=== PATIENT | male | born 1965 ===

== ENCOUNTER 2017-12-16 16:07 | Emergency (ER) | payer MEDICAID ==
[2017-12-16 16:08] VITALS: BMI 35.2
[2017-12-16 16:55] VITALS: TEMP 98
--- NOTE | 2017-12-16 17:19 | ED PDOC ---
HPI: General Adult Time Seen by Provider: 12/16/17 16:59 Chief Complaint (Nursing): Medical Clearance Chief Complaint (Provider): High Blood Pressure History Per: Patient Additional Complaint(s): 52 year old male presents to the ED for an evaluation of high blood pressure. Patient states he checked his blood pressure this morning with the machine on the wrist and it read 185/114. He is compliant with his blood pressure medication. He denies chest pain, difficulty breathing, shortness of breath, dizziness, headache or vision changes. PMD: [facility] Past Medical History Reviewed: Historical Data, Nursing Documentation, Vital Signs Vital Signs: Last Vital Signs Temp 98 F 12/16/17 16:52 Pulse 62 12/16/17 16:52 Resp 20 12/16/17 16:52 BP 153/78 H 12/16/17 16:52 Pulse Ox 98 12/16/17 19:16 - Medical History PMH: Atrial Fibrillation, Cardia Arrhythmia (afib), CVA (with L side weakness), Diabetes, HTN, Hypercholesterolemia, TIA - Surgical History Surgical History: Coronary Stent - Family History Family History: States: No Known Family Hx - Living Arrangements Living Arrangements: With Family - Social History Current smoker - smoking cessation education provided: No Alcohol: None Drugs: Denies - Home Medications Home Medications: Ambulatory Orders Medication Instructions Recorded Lisinopril 40 mg PO HS 02/19/14 Metformin Hydrochloride [Metformin] 500 mg PO BID 02/19/14 Metoprolol Tartrate 125 mg PO BID 02/19/14 Aspirin [Ecotrin] 81 mg PO DAILY 02/25/15 Fluticasone Propionate [Flonase] 2 spray DEA DAILY PRN 02/25/15 Vitamin B Complex [Super B100] 1 cap PO DAILY 02/25/15 Atorvastatin [Lipitor] 80 mg PO DAILY #0 tab 03/05/15 Dabigatran [Pradaxa] 150 mg PO BID #0 cap 03/05/15 Hydrochlorothiazide [HCTZ] 25 mg PO DAILY #0 tablet 03/05/15 Potassium Chloride [K-Dur 20 mEq 20 meq PO DAILY #0 tab 03/05/15 ER Tab] amLODIPine [Norvasc] 10 mg PO DAILY #0 tab 03/05/15 hydrALAZINE [Apresoline] 10 mg PO TID #0 tab 03/05/15 - Allergies Allergies/Adverse Reactions: Allergies Allergy/AdvReac Type Severity Reaction Status Date / Time No Known Allergies Allergy Verified 12/16/17 16:52 Review of Systems ROS Statement: Except As Marked, All Systems Reviewed And Found Negative Constitutional: Negative for: Fever, Chills, Weakness Cardiovascular: Negative for: Chest Pain, Palpitations, Edema, Light Headedness Respiratory: Negative for: Cough, Shortness of Breath Gastrointestinal: Negative for: Nausea, Vomiting Neurological: Negative for: Headache, Dizziness Physical Exam - Reviewed Nursing Documentation Reviewed: Yes Vital Signs Reviewed: Yes - Physical Exam Appears: Positive for: Well, Non-toxic, No Acute Distress Head Exam: Positive for: ATRAUMATIC, NORMAL INSPECTION, NORMOCEPHALIC Skin: Positive for: Normal Color. Negative for: Rash Eye Exam: Positive for: Normal appearance Cardiovascular/Chest: Positive for: Regular Rate, Rhythm. Negative for: Murmur Respiratory: Positive for: Normal Breath Sounds. Negative for: Decreased Breath Sounds, Wheezing, Respiratory Distress Gastrointestinal/Abdominal: Positive for: Normal Exam, Bowel Sounds, Soft. Negative for: Tenderness Neurologic/Psych: Positive for: Alert, Oriented (x3) - Laboratory Results Result Diagrams: 12/16/17 17:59 12/16/17 17:59 - ECG Interpretation Of ECG: A fib, 52 bpm, slow ventricular response, reviewed by PA and ED attending O2 Sat by Pulse Oximetry: 98 (RA) Pulse Ox Interpretation: Normal Medical Decision Making Medical Decision Making: Time: 1658 Initial Impression: 52 year old male with known history of HTN Initial Plan: --CMP --Troponin I --CBC --EKG BP upon arrival to ED 153/78 6:28 pm: K is low at 3.2, Kdur 40 PO given 7:00 pm Repeat BP 141/85 8:15 pm: BP - 134/83 Patient aware of all diagnostic testing results, all questions answered. Patient was advised to continue with current medications and was advised to follow-up with clinic in 2-3 days. Scribe Attestation: Documented by Joanne Adorno, acting as a scribe for Emily Wood PA-C Provider Scribe Attestation: All medical record entries made by the Scribe were at my direction and personally dictated by me. I have reviewed the chart and agree that the record accurately reflects my personal performance of the history, physical exam, medical decision making, and the department course for this patient. I have also personally directed, reviewed, and agree with the discharge instructions and disposition. Disposition - Clinical Impression Clinical Impression: High blood pressure - Patient ED Disposition Is Patient to be Admitted: No Counseled Patient/Family Regarding: Studies Performed, Diagnosis, Need For Followup - Disposition Referrals: [facility] [place] [Outside] Disposition: Routine/Home Disposition Time: 19:13 Condition: STABLE Additional Instructions: Continue with current medications. Follow-up with clinic in 2-3 days. Instructions: High Blood Pressure in Adults Forms: [employer] (Danish) Results - Lab Results Lab Results: 12/16/17 12/16/17 17:59 17:59 WBC 10.1 RBC 4.76 Hgb 12.9 Hct 39.5 MCV 82.9 D MCH 27.2 MCHC 32.8 L RDW 15.8 H Plt Count 408 H MPV 8.3 Neut % (Auto) 64.5 Lymph % (Auto) 21.3 [place] % (Auto) 8.1 Eos % (Auto) 4.7 H Baso % (Auto) 1.4 Neut # (Auto) 6.5 Lymph # (Auto) 2.2 [place] # (Auto) 0.8 Eos # (Auto) 0.5 Baso # (Auto) 0.1 Sodium 140 Potassium 3.2 L Chloride 98 Carbon Dioxide 29 Anion Gap 16 BUN 16 Creatinine 1.0 Est GFR ( Amer) > 60 Est GFR (Non-Af Amer) > 60 Random Glucose 123 H Calcium 9.5 Total Bilirubin 0.4 AST 33 ALT 33 Alkaline Phosphatase 116 Troponin I < 0.0120 Total Protein 7.7 Albumin 4.1 Globulin 3.6 Albumin/Globulin Ratio 1.1
[2017-12-16 18:14] LABS: BASO # 0.1 K/uL (0.0-0.2); BASO % 1.4 % (0.0-2.0); EOS # 0.5 K/uL (0.0-0.7); EOS % 4.7 % (0.0-4.0); HEMOGLOBIN 12.9 g/dL (12.0-18.0); LYMPH # 2.2 K/uL (1.0-4.3); LYMPH % 21.3 % (20.0-40.0); MEAN CELL VOLUME 82.9 fl (80.0-94.0); MEAN CORPUSCULAR HEMOGLOBIN 27.2 pg (27.0-31.0); MEAN CORPUSCULAR HGB CONC 32.8 g/dL (33.0-37.0); MEAN PLATELET VOLUME 8.3 fl (7.2-11.7); MONO # 0.8 K/uL (0.0-0.8); MONO % 8.1 % (0.0-10.0); NEUT # 6.5 K/uL (1.8-7.0); NEUT % 64.5 % (50.0-75.0); RBC 4.76 Mil/uL (4.40-5.90); RED CELL DISTRIBUTION WIDTH 15.8 % (11.5-14.5); WHITE BLOOD COUNT 10.1 K/uL (4.8-10.8)
[2017-12-16 18:22] LABS: ALB/GLOB RATIO 1.1 (1.0-2.1); ALBUMIN 4.1 g/dL (3.5-5.0); ALT/SGPT 33 U/L (21-72); AST/SGOT 33 U/L (17-59); BLOOD UREA NITROGEN 16 mg/dl (9-20); CALCIUM 9.5 mg/dL (8.4-10.2); GFR AFRICAN-AMERICAN > 60; GFR NON-AFRICAN AMERICAN > 60
[2017-12-16] MEDS ORDERED: Potassium Chloride 20 mEq ER Tab PO STA (18:27)
[2017-12-16] MEDS ORDERED: Potassium Chloride 20 mEq ER Tab PO ONE (19:35)
[2017-12-16 20:41] VITALS: BP 134/82; PULSE 79; RESP 15; O2SAT 99
== END 2017-12-16 20:41 | disposition home or self-care (01) ==
LOC: H.ER 16:07
DX: I10 Essential (primary) hypertension (principal); E11.9 Type 2 diabetes mellitus without complications; Z79.84 Long term (current) use of oral hypoglycemic drugs; E78.00 Pure hypercholesterolemia, unspecified; Z79.01 Long term (current) use of anticoagulants; Z86.73 Personal history of transient ischemic attack (TIA), and cerebral infarction without residual deficits; Z95.5 Presence of coronary angioplasty implant and graft; I48.91 Unspecified atrial fibrillation; Z79.82 Long term (current) use of aspirin